=== PATIENT | female | born 1980 | race Hispanic/Latino ===

== ENCOUNTER 2023-09-19 10:54 | Emergency (ER) | payer SELFPAY ==
[2023-09-19 11:05] VITALS: BP 139/95
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
== END 2023-09-19 12:25 | disposition home or self-care (01) ==
LOC: EMR 10:54
PROVIDERS: EMERGENCY PHYSICIAN Emergency Medicine; FAMILY PHYSICIAN Family Medicine
DX: S29.012A Strain of muscle and tendon of back wall of thorax, initial encounter (principal); G44.009 Cluster headache syndrome, unspecified, not intractable; V43.53XA Car driver injured in collision with pick-up truck in traffic accident, initial encounter; Z87.891 Personal history of nicotine dependence
CPT/HCPCS: 99281